=== PATIENT | female | born 1945 | race Two or more races ===

== ENCOUNTER → 2016-11-23 | Day surgery (SDC) | payer OTHER | END | disposition home or self-care (01) | LOC: FMAMMOTONE 11:36 | PROVIDERS: ATTEND Surgery | PROC: 0HBT3ZX Excision of Right Breast, Percutaneous Approach, Diagnostic (ICD-10-PCS; principal; 2016-11-23) | DX: D05.11 Intraductal carcinoma in situ of right breast (principal); R92.1 Mammographic calcification found on diagnostic imaging of breast; N64.1 Fat necrosis of breast; N64.89 Other specified disorders of breast | CPT/HCPCS: 19081; 87899; 88305-TC; 88342-TC; A4648 ==

== ENCOUNTER 2016-12-26 09:02 | Day surgery (SDC) | payer OTHER, BC ==
--- NOTE | 2016-12-18 10:45 | HP ---
Admitting History and Physical - Primary Care Physician PCP: Amanda Martinez - Admission Chief Complaint: Right breast DCIS History of Present Illness: 71 year old postmenapausal female with routine mammogram 09/08/2016 showing bilateral calcifications and new cluster of right breast calcifications. Diagnostic mammogram showed 5mm are of pleomorphic calcifications in right outer mid breast . 11/2016 Right breast sterotactic core biopsy showed interemediate grade DCIS. History Source: Patient Limitations to Obtaining History: No Limitations - Past Medical History Cardiovascular: Yes: HTN, Hyperlipdemia Pulmonary: Yes: Asthma Renal/: Yes: Renal Calculi Musculoskeletal: Yes: Osteoarthritis Endocrine: Yes: Diabetes Mellitus - Past Surgical History Past Surgical History: Yes: (x2) - Smoking History Smoking history: Never smoked - Alcohol/Substance Use Hx Alcohol Use: No Home Medications - Allergies Allergies/Adverse Reactions: Allergies Allergy/AdvReac Type Severity Reaction Status Date / Time No Known Drug Allergies Allergy Verified 12/29/14 07:30 - Home Medications Home Medications: Ambulatory Orders Bromfenac Sodium 1 drop OU DAILY 12/28/14 Budesonide [Pulmicort Flexhaler] 90 mcg IH DAILY PRN 12/28/14 Cyclosporine [Restasis] 1 drop OU BID 12/28/14 Labetalol HCl [Normodyne -] 100 mg PO BID 12/28/14 Metformin Xr [Glucophage *Xr* -] 500 mg PO HS 12/28/14 Nebivolol HCl [Bystolic] 10 mg PO DAILY 12/28/14 Simvastatin [Zocor -] 5 mg PO HS 12/28/14 Sitagliptin Phosphate [Januvia] 100 mg PO DAILY 12/28/14 Valsartan [Diovan] 320 mg PO HS 12/28/14 Cholecalciferol (Vitamin D3) [Vitamin D] 1,000 unit PO DAILY 12/29/14 Levofloxacin [Levaquin -] 500 mg PO DAILY #7 tablet 12/29/14 Oxycodone HCl/Acetaminophen [Percocet 7.5-325 mg Tablet -] 1 - 2 tab PO Q6H #20 tablet 12/29/14 Family Disease History - Family Disease History Family History: Unremarkable Physical Examination Constitutional: Yes: Well Nourished Breast(s): Yes: Other (no palpable masses or nipple discharge no adenopathy post bx changes right breast) Problem List - Problems (1) Ductal carcinoma in situ (DCIS) of right breast Code(s): D05.11 - INTRADUCTAL CARCINOMA IN SITU OF RIGHT BREAST Assessment/Plan Right breast wide excision with needle localization
[2016-12-20 17:16] VITALS: BMI 35.6
[~2016-12-26 09:02] MED LIST: LACTATED RINGERS SOLUTION 1,000 ML IV SCH; ONDANSETRON 4 MG/2 ML VIAL IVPUSH PRN
[2016-12-26] MEDS ORDERED: BUPIVACAINE HCL/PF 2.5 MG/ML - 30 ML VIAL IJ ONE (12:54)
[2016-12-26] MEDS ORDERED: LIDOCAINE 1%/EPI 1:100000 (20 ML MULTI DOSE VIAL) ONE (12:54)
[2016-12-26] MEDS ORDERED: LIDOCAINE HCL 1%, 10 MG/ML (20ML VIAL) ONE (12:54)
[2016-12-26] MEDS ORDERED: ONDANSETRON 4 MG/2 ML VIAL IVPB PRN (13:06)
[2016-12-26] MEDS ORDERED: KETOROLAC TROMETHAMINE 30 MG/1 ML VIAL IVPUSH PRN (13:06)
[2016-12-26] MEDS ORDERED: DEXTROSE 5%-0.45% SALINE 1,000 ML IV SCH (13:15)
[2016-12-26] MEDS ORDERED: LIDOCAINE 1%/EPI 1:100000 (50 ML MULTI DOSE VIAL) INF ONE (13:32)
[2016-12-26] MEDS ORDERED: LIDOCAINE HCL 1%, 10 MG/ML (50 mL VIAL) IJ ONE (13:32)
[2016-12-26] MEDS ORDERED: BUPIVACAINE HCL/PF 0.25% (2.5MG/ML) 10 ML VIAL IJ ONE (14:31)
[2016-12-26] MEDS ORDERED: ONDANSETRON 4 MG/2 ML VIAL ONE ×2 (14:43→15:13)
[2016-12-26] MEDS ORDERED: DEXAMETHASONE SOD PHOSPHATE 4 MG/1 ML VIAL ONE (14:43)
[2016-12-26 16:01] VITALS: TEMP 97.7
[2016-12-26 16:27] VITALS: BP 138/76; PULSE 62
--- NOTE | 2016-12-26 17:30 | OP ---
DATE OF OPERATION: 12/26/2016 PREOPERATIVE DIAGNOSIS: Ductal carcinoma in situ, right breast. POSTOPERATIVE DIAGNOSIS: Ductal carcinoma in situ, right breast. PROCEDURE: Right breast partial mastectomy. SURGEON: Amanda Martinez MD CONTACT CENTER AGENT: RATNA Rose ANESTHESIA: General. ANESTHESIOLOGIST: Vitor Moore MD SPECIMEN: 1. Right breast partial mastectomy. 2. through 8. Additional margins. ESTIMATED BLOOD LOSS: Minimal. DRAINS: None. INDICATION FOR PROCEDURE: The patient is a 71-year-old female whose routine screening mammogram showed a new cluster of right breast calcifications. Stereotactic biopsy showed ER positive/OR negative DCIS. The patient decided on breast conservation, and she is going to the operating room today for right breast wide excision. DESCRIPTION OF PROCEDURE: The patient was identified in the holding area. She was taken to breast imaging where she underwent localization of the clip in the right breast. There was also a hematoma present at the biopsy site. She was then taken back to the holding area where informed consent was obtained, and the right breast was identified with a marker. She was taken to the operating room and placed on the operating table in the supine position. Sequential compression devices were placed on both legs. She was intubated. The right breast was prepped and draped in the usual fashion. Examination of the breast showed a localizing wire at the 12 o' clock position. A timeout was performed. An incision was made at the superior border of the areola. The incision was deepened using electrocautery until the breast parenchyma was exposed. Electrocautery was then used to mobilize the tissue around the needle. The dissection continued around the tip of the needle. The specimen was completely mobilized and then removed from the operative field. During this process, the needle was dislodged from the tissue specimen. The specimen was labeled with a long lateral stitch and a short superior stitch. A specimen radiograph did not show the clip in the specimen. Additional tissue was taken from the deep margin which did show the clip. Additional margins were taken from the superior, inferior, medial, lateral, and superior portions of the biopsy cavity as well. All the specimens were labeled with a stitch at the biopsy cavity side. They were all placed in formalin and sent to Pathology. The wound was irrigated and inspected for hemostasis. Once hemostasis was satisfactory, the incision was closed. The deep tissue was closed with interrupted sutures of 2-0 plain. The skin was infiltrated with 0.25% Marcaine. The dermis was closed with interrupted sutures of 3-0 Vicryl. The skin was closed with a running subcuticular closure of 4-0 Monocryl. The wound was cleaned and covered with Steri-Strips. A sterile gauze dressing and a surgical bra were then applied. The patient was awakened. She tolerated the procedure well. At the end of the procedure, all sponge, lap, and instrument counts were correct. She was taken to the PACU in satisfactory condition. Melinda [id number] MTDD
--- NOTE | 2017-01-09 16:07 | PATH ---
Surgical Pathology Report Patient Name: BERTHA CONTRERAS [facility]. Rec. #: [id number] /Age/Gender: 1945 (Age: 71) / F Account: [id number] Location: [facility] AM[facility] Taken: 12/26/2016 Received: 12/26/2016 Reported: 01/01/2017 Physicians: Juan Patel M.D. Specimen(s) Received A: RIGHT BREAST WIDE EXCISION B: RIGHTBREAST INFERIOR MARGIN C: RIGHT BREAST DEEP MARGIN D: RIGHT BREAST MEDIAL MARGIN E: RIGHT BREAST LATERAL MARGIN F: RIGHTBREAST ANTERIOR MARGIN G: RIGHT BREAST SUPERIOR H: RIGHT BREAST ADDITIONAL DEEP MARGIN Clinical History Nonpalpable lesion, clip deep margin (specimen 3) Mammographic findings: Microcalcification Final Diagnosis A. breast, right, wide excision: Lobular carcinoma in situ (LCIS), florid TYPE with pleomorphic features (NUCLEAR GRADE 2) AND FOCAL necrosis. (See note) LCIS WITH PLEOMORPHIC FEATURES IS close TO (< 1 mm) the deep margin. see specimens B-H for final margins. Remaining breast tissue shows LCIS (classical type), ATYPICAL DUCTAL HYPERPLASIA (ADH), usual and papillary ductal hyperplasia and small intraductal papillomas. Prior biopsy site changes are present. Note: The foci of LCIS are negative for E-cadherin (performed at [facility]) and show cytoplasmic positivity for p120 catenin (performed at [place], [place]: [id number]). These findings support lobular phenotype for this in situ carcinoma. (See also amended prior core biopsy report () to reflect change in phenotype of the in situ carcinoma). ER and FL studies performed on prior biopsy AT [facility] ([id number]) are as follows: er: ~30% nuclear positivity with moderate intensity (positive). pr: 0% nuclear staining (negative). B. breast, right, inferior margin, excision: focal atypical ductal hyperplasia (ADH), LCIS (classical type), usual and papillary ductal hyperplasia, small intraductal papilloma and prior biopsy site changes. C. breast, right, deep margin, excision: Focal LCIS (classical type), cystic apocrine metaplasia and usual ductal hyperplasia (UDH). D. breast, right, medial margin, excision: Focal atypical ductal hyperplasia (ADH), intraductal papilloma, usual ductal hyperplasia (UDH) and prior biopsy site changes. E. breast, right, lateral margin, excision: Focal atypical ductal hyperplasia (ADH), cystic apocrine metaplasia, usual ductal hyperplasia (UDH) and intraductal papilloma. F. breast, right, anterior margin, excision: Benign breast tissue. G. breast, right, superior margin, excision: Benign fibroadipose tissue. H. breast, right, additional deep margin, excision: LCIS (CLASSICAL TYPE), usual ductal hyperplasia (UDH) and prior biopsy site changes. Electronically Signed Celeste Mart M.D. Gross Description A. Received in formalin, labeled "right breast wide excision," is a 5.0 x 4.8 x 2.2 cm. cline-yellow, irregular, portion of fibroadipose tissue. There is a short suture marking the superior aspect and a long suture marking the lateral aspect, per the surgeon. There is no needle localization wire present. There is no skin present. The specimen is inked as follows: superior and lateral blue; inferior green; medial yellow; anterior red; deep black. The specimen is serially sectioned from superior to inferior. Sectioning reveals a possible previous biopsy cavity abutting the deep margin. There is firm fibrous tissue surrounding the cavity. [employer] sections are submitted in 10 cassettes as follows: 5-1-[id number] previous biopsy cavity (each with lateral, anterior and deep margins); 1-8-[id number] fibrous tissue (each with anterior and deep margins); 6-9-[id number] deep margin; 8-medial margin; 9-superior margin; 10-inferior margin. Time to formalin fixation: not given Total formalin fixation time: Approximately 24 hours B. Received in formalin labeled "right breast inferior margin," is a 3.7 x 2.1 x 0.8 cm irregular portion of fibroadipose tissue with a suture marking the biopsy cavity side, per the surgeon. The new margin is inked black and the specimen is serially sectioned. The specimen is entirely submitted in 4 cassettes. C. Received in formalin labeled "right breast deep margin," is a 3.6 x 2.7 x 0.6 cm irregular portion of fibroadipose tissue with a suture marking the biopsy cavity side, per the surgeon. The new margin is inked black and the specimen is serially sectioned. The specimen is entirely submitted in 4 cassettes. D. Received in formalin labeled "right breast medial margin," is a 3.0 x 1.8 x 0.6 cm irregular portion of fibroadipose tissue with a suture marking the biopsy cavity side, per the surgeon. The new margin is inked black and the specimen is serially sectioned. The specimen is entirely submitted in 3 cassettes. E. Received in formalin labeled "right breast lateral margin," is a 3.2 x 2.8 x 0.9 cm irregular portion of fibroadipose tissue with a suture marking the biopsy cavity side, per the surgeon. The new margin is inked black and the specimen is serially sectioned. The specimen is entirely submitted in 3 cassettes. F. Received in formalin labeled "right breast anterior margin," is a 1.5 x 1.0 x 0.4 cm irregular portion of fibroadipose tissue with a suture marking the biopsy cavity side, per the surgeon. The new margin is inked black and the specimen is serially sectioned. The specimen is entirely submitted in one cassette. G. Received in formalin labeled "right breast superior margin," is a 2.0 x 0.8 x 0.8 cm irregular portion of fibroadipose tissue with a suture marking the biopsy cavity side, per the surgeon. The new margin is inked black and the specimen is serially sectioned. The specimen is entirely submitted in one cassette. H. Received in formalin labeled "right breast additional deep margin," is a 2.8 x 1.5 x 0.9 cm irregular portion of fibroadipose tissue with a suture marking the biopsy cavity side, per the surgeon. The new margin is inked black and the specimen is serially sectioned. The specimen is entirely submitted in 3 cassettes. 12/27/2016 saudi12/27/2016
== END 2016-12-26 16:39 | disposition home or self-care (01) ==
LOC: FASU 09:02
PROVIDERS: ATTEND Surgery
PROC: 0HBT0ZZ Excision of Right Breast, Open Approach (ICD-10-PCS; principal; 2016-12-26 13:11)
DX: D05.11 Intraductal carcinoma in situ of right breast (principal); I10 Essential (primary) hypertension; E78.5 Hyperlipidemia, unspecified; E11.9 Type 2 diabetes mellitus without complications; M19.90 Unspecified osteoarthritis, unspecified site; Z79.84 Long term (current) use of oral hypoglycemic drugs
CPT/HCPCS: 19281; 88307-TC; 88342-TC; 94760

== ENCOUNTER 2022-08-09 18:31 | Inpatient (IN) | payer OTHER, BC ==
[2022-08-09 18:45] VITALS: BMI 29.2
[2022-08-09] MEDS ORDERED: SODIUM CHLORIDE 0.9% 500 ML INFUS.BAG IV ONE (19:30)
[2022-08-09 20:47] LABS: BASO % 0.2 % (0-2.0); HEMATOCRIT 37.4 % (32.4-45.2); HEMOGLOBIN 12.6 GM/dL (10.7-15.3); MCH 31.6 pg (25.7-33.7); MCHC 33.7 g/dl (32.0-36.0); MEAN CELL VOLUME 93.7 fl (80-96); MEAN PLT VOLUME 7.6 fl (7.5-11.1); NEUT % 80.8 % (42.8-82.8); PLATELET COUNT 182 10^3/uL (134-434); RBC 3.99 M/mm3 (3.60-5.2); RDW 13.3 % (11.6-15.6); WHITE BLOOD COUNT 11.3 K/mm3 (4.0-10.0)
[2022-08-09 20:50] LABS: VENOUS BASE EXCESS 1.3 mmol/L (-2-2); VENOUS O2 SATURATION 63.3 % (70-80); VENOUS PCO2 42.3 mmHg (38-52); VENOUS PH 7.41 (7.310-7.410)
[2022-08-09 20:52] LABS: EPI CELLS >36 /uL (0-25.1); HYALINE CASTS 586 /uL (0-3.1); PH,URINE 5.5 (5.0-8.0); URINE APPEARANCE Turbid; URINE BACTERIA 4528 /uL (0-1359); URINE BILIRUBIN Small (NEGATIVE); URINE COLOR Orange; URINE GLUCOSE (UA) Negative (NEGATIVE); URINE KETONE Trace (NEGATIVE); URINE LEUK ESTERASE Large (NEGATIVE); URINE NITRITE Positive (NEGATIVE); URINE PROTEIN 300 (NEGATIVE); URINE RBC 2725 /uL (0-23.9); URINE WBC 33209 /uL (0-25.8)
[2022-08-09 20:54] LABS: INR 1.23 (0.83-1.09); PROTHROMBIN TIME (PATIENT) 14.2 SEC (9.7-13.0)
[2022-08-09 20:57] LABS: ACTIVATED PTT 29.9 SECONDS (25.2-36.5)
[2022-08-09 21:08] LABS: CHLORIDE 104 mmol/L (98-107); POTASSIUM 4.1 mmol/L (3.5-5.1); SODIUM 138 mmol/L (136-145)
[2022-08-09 21:09] LABS: CALCIUM 9.7 mg/dL (8.5-10.1)
[2022-08-09 21:10] LABS: ALBUMIN 3.4 g/dl (3.4-5.0); ANION GAP 10 MMOL/L (8-16); BLOOD UREA NITROGEN 34.4 mg/dL (7-18); CO2 24 mmol/L (21-32); GLUCOSE,RANDOM 132 mg/dL (74-106)
[2022-08-09 21:13] LABS: CREATININE 1.9 mg/dL (0.55-1.3); SGOT/AST 29 U/L (15-37); SGPT/ALT 36 U/L (13-61)
[2022-08-09 21:15] LABS: BILIRUBIN,TOTAL 1.2 mg/dL (0.2-1); TOT PROT 7.6 g/dl (6.4-8.2)
[2022-08-09 21:16] LABS: ALK PHOS 121 U/L (45-117)
[2022-08-09] MEDS ORDERED: CEFTRIAXONE 1,000 MG in DEXTROSE 5%-WATER - 50 ML IVPB ONE (21:16)
[2022-08-09] MEDS ORDERED: CEFTRIAXONE 1 GM/50 ML BAG ONE (21:37)
[2022-08-10] MEDS ORDERED: ACETAMINOPHEN 1000 MG/100 ML BAG IVPB ONE (00:59)
[2022-08-10] MEDS ORDERED: ACETAMINOPHEN 325 MG TABLET (FP) PO PRN (06:36)
[2022-08-10] MEDS ORDERED: oxyCODONE HCL 5 MG TABLET PO PRN (06:38)
[2022-08-10] MEDS ORDERED: SODIUM CHLORIDE 1,000 ML IV SCH (06:45)
[2022-08-10 08:47] LABS: BASO % 0.2 % (0-2.0); EOS % 0.1 % (0-4.5); HEMOGLOBIN 12.4 GM/dL (10.7-15.3); LYMPH % 5.6 % (8-40); MCH 31.9 pg (25.7-33.7); MCHC 33.6 g/dl (32.0-36.0); MEAN CELL VOLUME 94.9 fl (80-96); MEAN PLT VOLUME 8.4 fl (7.5-11.1); MONO % 11.5 % (3.8-10.2); NEUT % 82.6 % (42.8-82.8); PLATELET COUNT 152 10^3/uL (134-434); RDW 13.3 % (11.6-15.6)
[2022-08-10 08:49] LABS: WHITE BLOOD COUNT 13.1 K/mm3 (4.0-10.0)
[2022-08-10 08:51] LABS: POTASSIUM 4.2 mmol/L (3.5-5.1)
[2022-08-10 08:52] LABS: BLOOD UREA NITROGEN 31.1 mg/dL (7-18); CALCIUM 9.2 mg/dL (8.5-10.1)
[2022-08-10 08:55] LABS: CREATININE 1.3 mg/dL (0.55-1.3)
[2022-08-10 08:57] LABS: TOT PROT 6.9 g/dl (6.4-8.2)
[2022-08-10] MEDS: DOCUSATE SODIUM 100 MG CAPSULE (FP) PO SCH (09:48)
[2022-08-10] MEDS: NEBIVOLOL 10 MG TABLET (FP) PO SCH (09:48)
[2022-08-10] MEDS: HEPARIN NA (PORCINE) 5,000 UNITS/ML 1ML VIAL SQ SCH ×2 (09:48→21:24)
[2022-08-10] MEDS ORDERED: CEFTRIAXONE 1 GM in DEXTROSE 5%-WATER - 50 ML IVPB SCH (10:00)
[2022-08-10] MEDS: PIPERACILLIN/TAZOB 3.375 GM 3.375 GM in DEXTROSE 5%-WATER - 50 ML IVPB SCH ×2 (15:21→17:17)
[2022-08-10] MEDS: SODIUM CHLORIDE 0.45% 1,000 ML IV SCH (15:21)
[2022-08-10] MEDS ORDERED: ATORVASTATIN CA 10 MG TABLET (FP) PO SCH (22:00)
[2022-08-11] MEDS: PIPERACILLIN/TAZOB 3.375 GM 3.375 GM in DEXTROSE 5%-WATER - 50 ML IVPB SCH ×2 (01:43→09:36)
[2022-08-11] MEDS: SODIUM CHLORIDE 0.45% 1,000 ML IV SCH ×3 (06:47→22:25)
[2022-08-11 08:40] LABS: POTASSIUM 3.8 mmol/L (3.5-5.1)
[2022-08-11 08:44] LABS: ALBUMIN 2.6 g/dl (3.4-5.0); CALCIUM 8.7 mg/dL (8.5-10.1)
[2022-08-11 08:47] LABS: CREATININE 1.2 mg/dL (0.55-1.3)
[2022-08-11 08:49] LABS: BILIRUBIN,TOTAL 0.7 mg/dL (0.2-1); TOT PROT 6.2 g/dl (6.4-8.2)
[2022-08-11 09:01] LABS: BASO % 0.1 % (0-2.0); EOS % 0.1 % (0-4.5); HEMATOCRIT 34.3 % (32.4-45.2); HEMOGLOBIN 11.7 GM/dL (10.7-15.3); LYMPH % 5.1 % (8-40); MCH 32.1 pg (25.7-33.7); MCHC 34.1 g/dl (32.0-36.0); MEAN CELL VOLUME 94.3 fl (80-96); MEAN PLT VOLUME 7.9 fl (7.5-11.1); MONO % 9.6 % (3.8-10.2); NEUT % 85.1 % (42.8-82.8); PLATELET COUNT 153 10^3/uL (134-434); RBC 3.63 M/mm3 (3.60-5.2); RDW 13.4 % (11.6-15.6); WHITE BLOOD COUNT 11.1 K/mm3 (4.0-10.0)
[2022-08-11] MEDS: HEPARIN NA (PORCINE) 5,000 UNITS/ML 1ML VIAL SQ SCH ×2 (09:02→22:27)
[2022-08-11] MEDS: DOCUSATE SODIUM 100 MG CAPSULE (FP) PO SCH (09:03)
[2022-08-11] MEDS: NEBIVOLOL 10 MG TABLET (FP) PO SCH (09:36)
[2022-08-11] MEDS ORDERED: CALCIUM (OYSTER SHELL) 500 MG TABLET (FP) PO SCH ×2 (10:00→15:00)
[2022-08-11] MEDS ORDERED: EXFORGE PO SCH (10:00)
[2022-08-11] MEDS ORDERED: BROMFENAC SODIUM OU SCH (10:00)
[2022-08-11] MEDS ORDERED: LABETALOL HCL 100 MG TABLET (FP) PO SCH ×2 (12:45→22:00)
[2022-08-11] MEDS ORDERED: CEFAZOLIN SODIUM 2 GM VIAL ONE (13:09)
[2022-08-11] MEDS ORDERED: amLODIPine BESYLATE 5 MG TABLET (FP) PO SCH (13:30)
[2022-08-11] MEDS ORDERED: VALSARTAN 160 MG TABLET PO SCH (13:30)
[2022-08-11] MEDS: CEFAZOLIN SODIUM 2 GM in DEXTROSE 5%-WATER 100 ML IVPB SCH ×2 (13:56→22:26)
[2022-08-11] MEDS: PATIENT'S OWN MEDICATION (NON-FORMULARY) (Cyclosporine [Restasis] 1 EACH Droperette) OU SCH (15:13)
[2022-08-11] MEDS ORDERED: ACETAMINOPHEN 1000 MG/100 ML BAG IVPB ONE (15:15)
[2022-08-11] MEDS ORDERED: ONDANSETRON 4 MG/2 ML VIAL IVPUSH PRN ×2 (17:41→19:44)
[2022-08-11] MEDS ORDERED: LACTATED RINGERS SOLUTION 1,000 ML IV SCH ×2 (17:45→19:44)
[2022-08-11] MEDS ORDERED: MIDAZOLAM HCL 2 MG/2 ML SINGLE DOSE VIAL ONE (17:51)
[2022-08-11] MEDS ORDERED: PROPOFOL 40 ML ONE (17:51)
[2022-08-11] MEDS ORDERED: GENTAMICIN SO4 80 MG/2 ML VIAL IVPB ONE (18:37)
[2022-08-11] MEDS ORDERED: GENTAMICIN SO4 80 MG/2 ML VIAL ONE ×2 (18:45→18:46)
[2022-08-11] MEDS ORDERED: IOHEXOL 300 MG/ML INFUS..BTL IV ONE (18:58)
[2022-08-11] MEDS ORDERED: DEXAMETHASONE SOD PHOSPHATE 4 MG/1 ML VIAL ONE (19:15)
[2022-08-11] MEDS ORDERED: ONDANSETRON 4 MG/2 ML VIAL ONE (19:15)
[2022-08-11] MEDS ORDERED: ACETAMINOPHEN 325 MG TABLET (FP) PO PRN (19:44)
[2022-08-11] MEDS ORDERED: oxyCODONE HCL 5 MG TABLET PO PRN (19:44)
[2022-08-11] MEDS: ATORVASTATIN CA 10 MG TABLET (FP) PO SCH (22:27)
[2022-08-12] MEDS: CEFAZOLIN SODIUM 2 GM in DEXTROSE 5%-WATER 100 ML IVPB SCH ×4 (01:30→21:35)
[2022-08-12] MEDS: PATIENT'S OWN MEDICATION (NON-FORMULARY) (Budesonide [Pulmicort Flexhaler] 90 MCG Aer.Pow. IH SCH ×2 (05:19→05:20)
[2022-08-12] MEDS: PATIENT'S OWN MEDICATION (NON-FORMULARY) (Cyclosporine [Restasis] 1 EACH Droperette) OU SCH (05:20)
[2022-08-12] MEDS: CALCIUM (OYSTER SHELL) 500 MG TABLET (FP) PO SCH (09:30)
[2022-08-12] MEDS: DOCUSATE SODIUM 100 MG CAPSULE (FP) PO SCH (09:31)
[2022-08-12] MEDS: HEPARIN NA (PORCINE) 5,000 UNITS/ML 1ML VIAL SQ SCH ×2 (09:32→21:35)
[2022-08-12] MEDS ORDERED: VALSARTAN 160 MG TABLET PO SCH (10:00)
[2022-08-12] MEDS ORDERED: BROMFENAC SODIUM OU SCH (10:00)
[2022-08-12] MEDS ORDERED: amLODIPine BESYLATE 5 MG TABLET (FP) PO SCH (10:00)
[2022-08-12] MEDS ORDERED: NEBIVOLOL 10 MG TABLET (FP) PO SCH (10:00)
[2022-08-12 14:44] VITALS: RESP 18
[2022-08-12] MEDS: SODIUM CHLORIDE 0.45% 1,000 ML IV SCH (18:25)
[2022-08-12] MEDS ORDERED: CEFAZOLIN SODIUM 2 GM VIAL ONE (21:27)
[2022-08-12] MEDS: ATORVASTATIN CA 10 MG TABLET (FP) PO SCH ×2 (21:34→21:38)
[2022-08-12] MEDS: LABETALOL HCL 100 MG TABLET (FP) PO SCH (21:34)
[2022-08-12] MEDS: MOMETASONE FUROATE 220 MCG/IH INHALER IH SCH (21:35)
[2022-08-13] MEDS: CEFAZOLIN SODIUM 2 GM in DEXTROSE 5%-WATER 100 ML IVPB SCH ×3 (05:34→21:32)
[2022-08-13] MEDS: CALCIUM (OYSTER SHELL) 500 MG TABLET (FP) PO SCH (09:14)
[2022-08-13] MEDS: VALSARTAN 160 MG TABLET PO SCH (09:14)
[2022-08-13] MEDS: LABETALOL HCL 100 MG TABLET (FP) PO SCH ×2 (09:15→21:32)
[2022-08-13] MEDS: DOCUSATE SODIUM 100 MG CAPSULE (FP) PO SCH (09:16)
[2022-08-13] MEDS: HEPARIN NA (PORCINE) 5,000 UNITS/ML 1ML VIAL SQ SCH ×2 (09:17→21:32)
[2022-08-13] MEDS ORDERED: BROMFENAC SODIUM OU SCH (10:00)
[2022-08-13 10:05] LABS: BASO % 0.3 % (0-2.0); EOS % 2.8 % (0-4.5); HEMATOCRIT 33.2 % (32.4-45.2); HEMOGLOBIN 11.4 GM/dL (10.7-15.3); LYMPH % 13.2 % (8-40); MCHC 34.4 g/dl (32.0-36.0); MEAN CELL VOLUME 93.2 fl (80-96); MEAN PLT VOLUME 7.5 fl (7.5-11.1); MONO % 10.6 % (3.8-10.2); NEUT % 73.1 % (42.8-82.8); PLATELET COUNT 189 10^3/uL (134-434); RBC 3.56 M/mm3 (3.60-5.2); RDW 12.9 % (11.6-15.6)
[2022-08-13 10:55] LABS: ALBUMIN 2.2 g/dl (3.4-5.0); BILIRUBIN,TOTAL 0.8 mg/dL (0.2-1); BLOOD UREA NITROGEN 11.9 mg/dL (7-18); CALCIUM 8.8 mg/dL (8.5-10.1); CREATININE 0.9 mg/dL (0.55-1.3); POTASSIUM 3.1 mmol/L (3.5-5.1); TOT PROT 5.8 g/dl (6.4-8.2)
[2022-08-13] MEDS: SODIUM CHLORIDE 0.45% 1,000 ML IV SCH (14:14)
[2022-08-13] MEDS: MOMETASONE FUROATE 220 MCG/IH INHALER IH SCH (20:19)
[2022-08-13] MEDS: ATORVASTATIN CA 10 MG TABLET (FP) PO SCH (21:34)
[2022-08-13] MEDS: POTASSIUM CHLORIDE TABS 10 MEQ TABLET.ER (FP) PO SCH (21:38)
[2022-08-14] MEDS: SODIUM CHLORIDE 0.45% 1,000 ML IV SCH (02:12)
[2022-08-14] MEDS: CEFAZOLIN SODIUM 2 GM in DEXTROSE 5%-WATER 100 ML IVPB SCH ×2 (05:56→13:27)
[2022-08-14] MEDS ORDERED: CEFAZOLIN SODIUM 2 GM VIAL ONE (05:57)
[2022-08-14] MEDS: LABETALOL HCL 100 MG TABLET (FP) PO SCH (09:54)
[2022-08-14] MEDS: VALSARTAN 160 MG TABLET PO SCH (09:54)
[2022-08-14] MEDS: DOCUSATE SODIUM 100 MG CAPSULE (FP) PO SCH (09:55)
[2022-08-14] MEDS: POTASSIUM CHLORIDE TABS 10 MEQ TABLET.ER (FP) PO SCH ×2 (10:04→11:54)
[2022-08-14] MEDS: HEPARIN NA (PORCINE) 5,000 UNITS/ML 1ML VIAL SQ SCH (10:04)
[2022-08-14] MEDS: CALCIUM (OYSTER SHELL) 500 MG TABLET (FP) PO SCH (10:04)
[2022-08-14 11:23] VITALS: BP 140/61; PULSE 82; TEMP 98.2
[2022-08-14 12:35] LABS: POTASSIUM 3.9 mmol/L (3.5-5.1)
[2022-08-14 12:36] LABS: CALCIUM 9.4 mg/dL (8.5-10.1)
== END 2022-08-14 14:50 | disposition home or self-care (01) | DRG 661 ==
LOC: JER 18:31 → JERBED 21:53 → J6S 08-10 00:05
PROVIDERS: ADMIT Internal Medicine; ATTEND Internal Medicine
PROC: 0TF78ZZ Fragmentation in Left Ureter, Via Natural or Artificial Opening Endoscopic (ICD-10-PCS; 2022-08-11)
PROC: BT1FZZZ Fluoroscopy of Left Kidney, Ureter and Bladder (ICD-10-PCS; 2022-08-11)
PROC: 0T778DZ Dilation of Left Ureter with Intraluminal Device, Via Natural or Artificial Opening Endoscopic (ICD-10-PCS; principal; 2022-08-11 17:30)
DX: N13.6 Pyonephrosis (principal); N17.9 Acute kidney failure, unspecified; E11.9 Type 2 diabetes mellitus without complications; I10 Essential (primary) hypertension; D72.829 Elevated white blood cell count, unspecified; B96.20 Unspecified Escherichia coli [E. coli] as the cause of diseases classified elsewhere
CPT/HCPCS: 0241U-QW; 36415; 70450-TC; 71045-TC-FY; 74176-TC; 76000-TC-FY; 80048; 80053; 81003; 82550; 82553; 82803; 83605; 84484; 85025; 85610; 85730; 86850; 86900; 86901; 87040; 87086; 87186; 87651; 93005; 93010; 93971; 94760; 99285-25; C1758; C1894; C2617; J1644

== ENCOUNTER 2022-10-09 05:14 | Day surgery (SDC) | payer OTHER, BC ==
[2022-10-03 17:10] VITALS: BMI 29.2
[2022-10-09 06:28] VITALS: RESP 18
[2022-10-09] MEDS ORDERED: ROCURONIUM BROMIDE 50 MG/5 ML SYRINGE ONE (07:31)
[2022-10-09] MEDS ORDERED: SUCCINYLCHOLINE CHLORIDE 200 MG/10 ML SYRINGE ONE (07:31)
[2022-10-09] MEDS ORDERED: MIDAZOLAM HCL 2 MG/2 ML SINGLE DOSE VIAL ONE (07:31)
[2022-10-09] MEDS ORDERED: PROPOFOL 20 ML ONE (07:31)
[2022-10-09 09:22] VITALS: BP 176/70; PULSE 100; TEMP 97.1
== END 2022-10-09 09:20 | disposition home or self-care (01) ==
LOC: JASU-SURG 05:14
PROVIDERS: ATTEND Urology
PROC: 0TF4XZZ Fragmentation in Left Kidney Pelvis, External Approach (ICD-10-PCS; principal; 2022-10-09 08:00)
DX: N20.0 Calculus of kidney (principal)

== ENCOUNTER 2023-01-29 04:38 | Day surgery (SDC) | payer OTHER, BC ==
[2023-01-25 18:21] VITALS: BMI 29.2
[2023-01-29 08:05] VITALS: RESP 18
[2023-01-29] MEDS ORDERED: MIDAZOLAM HCL 2 MG/2 ML SINGLE DOSE VIAL ONE (09:11)
[2023-01-29] MEDS ORDERED: FENTANYL CITRATE/PF 50 MCG/ML VIAL ONE (09:11)
[2023-01-29] MEDS ORDERED: ONDANSETRON 4 MG/2 ML VIAL ONE (09:11)
[2023-01-29 17:08] VITALS: BP 164/79; PULSE 75; TEMP 97.9
== END 2023-01-29 12:00 | disposition home or self-care (01) ==
LOC: JASU-SURG 04:38
PROVIDERS: ATTEND Urology
PROC: 0TF3XZZ Fragmentation in Right Kidney Pelvis, External Approach (ICD-10-PCS; principal; 2023-01-29 09:30)
DX: N20.0 Calculus of kidney (principal)
CPT/HCPCS: 82962

== ENCOUNTER 2023-09-10 04:06 | Day surgery (SDC) | payer OTHER, BC ==
[2023-09-06 17:47] VITALS: BMI 29.2
[2023-09-10] MEDS ORDERED: SUCCINYLCHOLINE CHLORIDE 200 MG/10 ML SYRINGE ONE (07:38)
[2023-09-10] MEDS ORDERED: ONDANSETRON 4 MG/2 ML VIAL ONE (07:38)
[2023-09-10] MEDS ORDERED: MIDAZOLAM HCL 2 MG/2 ML SINGLE DOSE VIAL ONE (07:58)
[2023-09-10 08:39] VITALS: BP 125/69; PULSE 77; RESP 16; TEMP 97.5
== END 2023-09-10 09:27 | disposition home or self-care (01) ==
LOC: JASU-SURG 04:06
PROVIDERS: ATTEND Urology
PROC: 0TF4XZZ Fragmentation in Left Kidney Pelvis, External Approach (ICD-10-PCS; principal; 2023-09-10 08:00)
DX: N20.0 Calculus of kidney (principal)
CPT/HCPCS: 82962